=== PATIENT | female | born 1960 | race Caucasian/White ===

== ENCOUNTER 2018-03-01 00:10 | Outpatient (CLI) | payer OTHER, SELFPAY ==
--- NOTE | 2018-03-01 08:30 | ETT_ITS ---
*[facility]* [address] [place] [address] Myocardial Perfusion Imaging - SPECT [place] protocol Date of study: 03/01/2018 *PATIENT PRESENTATION* Height: 165.1cm (65in) Blood Pressure: Weight: 81.8kg (180lb) BSA: 1.96m^2 Ordering physician: Margot Wood Summary: 1. Stress ECG conclusions: Mullins treadmill score: 9. This score predicts a low risk of cardiac events. 2. Negative ischemia. Indication: R06.09. History: REASON FOR VISIT: PATIENT REPORTS OCCASIONAL SHARP/KNIFE LIKE CHEST PAIN FOR THE LAST 2-3 YEARS, AND INCREASED SOB WITH CLIMBING STAIRS. DENIES NAUSEA AND DIZZYNESS WITH CHEST PAIN. MEDICAL HISTORY: BREAST CANCER FAMILY HISTORY: FATHER-ATRIAL FIBRILLATION AND MYOCARDIAL INFARDTION SMOKING STATUS: QUIT 04/07 PACK PER DAY FOR 17 YEARS EXERCISE ROUTINE: 30 - 60 PER DAY OF WALKING Risk factors: Family history of coronary artery disease. Dyslipidemia. Cholesterol: 236mg/dl. HDL: 67mg/dl. LDL: 162mg/dl. Triglycerides: 68mg/dl. ALLERGIES: NO KNOWN ALLERGIES: NO KNOWN ALLERGIES MEDICATIONS: CELEXA 10 MG DAILY, GLUCOSAMINE CHOND COMPLEX 1500 MG DAILY, PROLIA 60 MG/ML SUBCUTANEOUS EVERY 6 MONTHS, VITAMIN D 600 MG DAILY, CALCIUM 600 MG DAILY, FEMARA 2.5 MG DAILY. Imaging Technique: Protocol: [place] protocol. Acquisition: Gated SPECT; 1 day - rest/stress. The patient was imaged in the supine position. Attenuation correction used. Isotope administration: - Rest. Tc[99m]-sestamibi. Injection to stress time: 00:45. - Stress. Tc[99m]-sestamibi. 1-2 min before end of exercise Baseline ECG: TODAY'S EKG: FIRST DEGREE WITH AL 0.21, HEART RATE 56. T WAVE INVERSION NOTED IN AVL/V1/V2 AT BASELINE. Stress protocol: + +---+ +---+ !Stage !HR !BP (mmHg) !Sat! + +---+ +---+ !Baseline supine !56 !112/74 (87) !98%! + +---+ +---+ !Baseline standing !67 !100/70 (80) !---! + +---+ +---+ !Stage I; 1.7mph, 10degrees; 3 min !120!122/68 (86) !---! + +---+ +---+ !Stage II; 2.5mph, 12degrees; 3 min !146!172/78 (109)!96%! + +---+ +---+ !Stage III; 3.4mph, 14degrees; 3 min!169!178/82 (114)!---! + +---+ +---+ !Recovery; 1 min !167!190/68 (109)!---! + +---+ +---+ !Recovery; 3 min !98 !162/64 (97) !---! + +---+ +---+ !Recovery; 6 min !88 !114/54 (74) !---! + +---+ +---+ * Stress results: The rate-pressure product for the peak heart rate and blood pressure was 33116mw Hg/min. Stress ECG: STRESS TEST ENDED IN 8 MINUTES 32 SECONDS DUE TO FATIGUE AND HAVING MET MAX HEART RATE. NORMAL HR RESPONSE. NORMAL BP RESPONSE. 104 % OF TARGET. APPROXIMATE METS ACHIEVED: 10.16 ECTOPY: T WAVE INVERSION IN AVL AVL/V1/V2 AT BASELINE AND REMAINED THE SAME THROUGH OUT THE STRESS TEST. NO ANGINA REPORTED BY PATIENT. NO SIGNIFICANT ST CHANGES NOTED. FUNCITONAL CAPACITY. ABOVE AVERAGE CAPACITY Mullins treadmill score: 9. This score predicts a low risk of cardiac events. Myocardial perfusion: Imaging information: gated. Study data: Maximus Garsia MD supervised and was readily available during the procedure. This study was interpreted by [facility]. Study status: Routine. Consent: The risks, benefits, and alternatives to the procedure were explained to the patient and informed consent was obtained. Procedure: Initial setup. A baseline ECG was recorded. Surface ECG leads and manual cuff blood pressure measurements were monitored. Heart sounds: Normal. Lung sounds: Normal. Treadmill exercise testing was performed using the [place] protocol. Study completion: All catheters inserted during the procedure were removed. The patient tolerated the procedure well and was discharged from the lab. Discharge: The patient left the laboratory in stable condition. Birthdate: Patient birthdate: 1960. Sex: Gender: female. Study date: Study date: 03/01/2018. Study time: 08:30 AM. Electronically signed by Maximus Garsia MD 03/01/2018 16:27
== END 2018-03-01 00:30 ==
PROVIDERS: PCP Family Medicine; Visit Provider Family Medicine
DX: R07.9 Chest pain, unspecified (principal); R06.02 Shortness of breath; R06.09 Other forms of dyspnea
CPT/HCPCS: 93017

== ENCOUNTER 2020-03-02 09:20 | Outpatient (REF) | payer OTHER, SELFPAY ==
[2020-03-02 18:41] LABS: Abs Immature Grans 0.01 10^3/uL (0.0-0.06); Absolute Basophil Count 0.03 10^3/uL (0.0-0.2); Absolute Eosinophil Count 0.12 10^3/uL (0.0-0.7); Absolute Monocyte Count 0.61 10^3/uL (0.1-0.8); Absolute Neutrophil Count 3.31 10^3/uL (1.2-6.7); Basophils % 0.5; Eosinophils % 1.9; HCT 38.4 % (36.0-46.0); HGB 12.6 g/dL (11.2-15.7); Immature Grans % 0.2; MCH 29.8 pg (27.0-33.0); MCHC 32.8 % (32.0-36.0); MCV 90.8 fL (80-95); MPV 9.6 fL (8.0-11.0); Monocytes % 9.7; Neutrophils % 52.7; Nucleated RBC 0 %; Platelet Count 292 10^3/uL (130-400); RBC 4.23 10^6/uL (3.93-5.22); RDW 12.8 % (11.7-14.6); RDW-SD 42.5 fL; WBC 6.28 10^3/uL (4.4-10.8)
[2020-03-02 19:04] LABS: Hemoglobin A1C 5.7 % (<5.7)
== END 2020-03-02 09:40 ==
LOC: NCHCN 09:20
PROVIDERS: PCP Family Medicine; Visit Provider Family Medicine
DX: Z00.00 Encounter for general adult medical examination without abnormal findings (principal); R53.83 Other fatigue; Z13.1 Encounter for screening for diabetes mellitus
CPT/HCPCS: 83036; 85025

== ENCOUNTER 2020-05-22 02:56 | Outpatient (CLI) | payer OTHER, SELFPAY ==
[2020-05-23 13:27] LABS: COVID-19 RT-PCR UVMMC Result Negative (Negative)
== END 2020-05-22 02:57 | disposition home or self-care (01) ==
LOC: LBO 02:56
PROVIDERS: PCP Family Medicine; Visit Provider Surgery
DX: Z20.828 Contact with and (suspected) exposure to other viral communicable diseases (principal); Z01.818 Encounter for other preprocedural examination
CPT/HCPCS: U0003

== ENCOUNTER 2021-03-07 14:05 | Outpatient (REF) | payer OTHER, SELFPAY ==
--- NOTE | 2021-03-07 12:00 | PAPFT_PTH ---
PATIENT: Ning Quintana LOC: [facility]#:[id number] AGE/SX: 60/F ROOM: RE03/07/[address]: Margot Wood : 1960 BED: DIS: 03/07/2021 SPEC #: [id number] RECD: 03/07/21 17:11 STATUS: CHRISTO HODGES #: [id number] GREER: 03/07/21 12:[address]: Margot Wood DEPT: [facility] Cytology RECD BY: Caroline Scott Tissues: 1 - CX/ENDOCX FOR PAP SMEARS Procedures: PAP THIN PREP/[facility] Screening HPV DNA PROBE Comments: [id number]
[2021-03-07 14:30] LABS: Calculated LDL 190 mg/dL (<100); Cholesterol 272 mg/dL (<200); HDL Cholesterol 67 mg/dL (40-60); Triglyceride 76 mg/dL (<150)
[2021-03-11 09:58] LABS: HIV-1/2 Ag & Ab Screen Negative (Negative)
[2021-03-11 10:04] LABS: Hepatitis C Ab w Rflx HCV PCR Negative (Negative)
== END 2021-03-07 14:06 | disposition home or self-care (01) ==
LOC: NCHCN 14:05
PROVIDERS: PCP Family Medicine; Visit Provider Family Medicine
DX: Z11.4 Encounter for screening for human immunodeficiency virus [HIV] (principal); Z11.59 Encounter for screening for other viral diseases; Z82.49 Family history of ischemic heart disease and other diseases of the circulatory system; Z00.00 Encounter for general adult medical examination without abnormal findings; Z12.4 Encounter for screening for malignant neoplasm of cervix; Z11.51 Encounter for screening for human papillomavirus (HPV)
CPT/HCPCS: 80061; 86803; 87389; 88142; 87624

== ENCOUNTER 2021-03-13 08:37 | Outpatient (REF) | payer OTHER, SELFPAY ==
[2021-03-13 14:21] LABS: Glucose 99 mg/dL (74-106)
[2021-03-14 09:37] LABS: Hepatitis C Ab w Rflx HCV PCR Negative (Negative)
[2021-03-14 21:46] LABS: Hemoglobin A1C 5.7 % (<5.7)
== END 2021-03-13 08:38 | disposition home or self-care (01) ==
LOC: NCHCN 08:37
PROVIDERS: PCP Family Medicine; Visit Provider Family Medicine
DX: R73.03 Prediabetes (principal); Z11.59 Encounter for screening for other viral diseases
CPT/HCPCS: 82947; 86803; 83036

== ENCOUNTER 2021-07-17 03:06 | Outpatient (CLI) | payer OTHER, SELFPAY | END 2021-07-17 03:07 | disposition home or self-care (01) | LOC: LBO 03:07 | PROVIDERS: PCP Family Medicine; Visit Provider Family Medicine ==

== ENCOUNTER 2021-07-25 02:27 | Outpatient (CLI) | payer OTHER, SELFPAY ==
[2021-07-25 08:38] LABS: ALT 20 U/L (14-59); Calculated LDL 97 mg/dL (<100); Cholesterol 163 mg/dL (<200); HDL Cholesterol 55 mg/dL (40-60); Triglyceride 57 mg/dL (<150)
== END 2021-07-25 02:28 | disposition home or self-care (01) ==
LOC: LBO 02:28
PROVIDERS: PCP Family Medicine; Visit Provider Family Medicine
DX: E78.5 Hyperlipidemia, unspecified (principal)
CPT/HCPCS: 36415; 80061; 84460